=== PATIENT | female | born 1945 | race Caucasian/White ===

== ENCOUNTER 2020-07-18 15:50 | Emergency (ER) | payer OTHER | END 2020-07-18 16:09 | disposition home or self-care (01) | LOC: JVIRT 15:50 | DX: U07.1 COVID-19 (principal) | CPT/HCPCS: C9803; Q3014-GT; U0003 ==

== ENCOUNTER 2021-08-24 18:27 | Inpatient (IN) | payer OTHER ==
[2021-08-24] MEDS ORDERED: ACETAMINOPHEN 1000 MG/100 ML BAG IVPB ONE (19:41)
[2021-08-24 19:49] LABS: BASO % 0.2 % (0-2.0); EOS % 2.1 % (0-4.5); HEMATOCRIT 42.6 % (32.4-45.2); HEMOGLOBIN 14.2 GM/dL (10.7-15.3); LYMPH % 16.3 % (8-40); MCH 30.1 pg (25.7-33.7); MCHC 33.3 g/dl (32.0-36.0); MEAN CELL VOLUME 90.4 fl (80-96); MEAN PLT VOLUME 8.1 fl (7.5-11.1); MONO % 6.5 % (3.8-10.2); NEUT % 74.9 % (42.8-82.8); PLATELET COUNT 208 10^3/uL (134-434); RBC 4.71 M/mm3 (3.60-5.2); RDW 12.8 % (11.6-15.6); WHITE BLOOD COUNT 10.9 K/mm3 (4.0-10.0)
[2021-08-24] MEDS ORDERED: morphine CARPU-JECT 2 MG/1 ML DISP.SYRIN IVPUSH ONE (19:52)
[2021-08-24] MEDS ORDERED: LIDOCAINE 5% TOPICAL PATCH TP ONE (19:53)
[2021-08-24] MEDS ORDERED: ACETAMINOPHEN INJECTION 100 ML IVPB ONE (19:54)
[2021-08-24 20:19] LABS: CALCIUM 9.1 mg/dL (8.5-10.1)
[2021-08-24] MEDS ORDERED: LIDOCAINE 5% TOPICAL PATCH ONE (20:19)
[2021-08-24 20:20] LABS: ALBUMIN 3.8 g/dl (3.4-5.0); BLOOD UREA NITROGEN 19.2 mg/dL (7-18); MAGNESIUM 2.3 mg/dL (1.8-2.4)
[2021-08-24 20:21] LABS: INR 1.09 (0.83-1.09); PROTHROMBIN TIME (PATIENT) 12.2 SEC (9.7-13.0)
[2021-08-24 20:23] LABS: CREATININE 0.6 mg/dL (0.55-1.3)
[2021-08-24 20:24] LABS: ACTIVATED PTT 31.4 SECONDS (25.2-36.5); BILIRUBIN,TOTAL 0.4 mg/dL (0.2-1); TOT PROT 7.3 g/dl (6.4-8.2)
[2021-08-24] MEDS ORDERED: LIDOCAINE HCL 1%, 10 MG/ML (50 mL VIAL) PNB ONE (22:45)
[2021-08-24] MEDS ORDERED: LIDOCAINE HCL 1%, 10 MG/ML (20ML VIAL) ONE (23:05)
[2021-08-25 06:08] LABS: PH,URINE 6.5 (5.0-8.0); URINE APPEARANCE CLEAR; URINE BILIRUBIN NEGATIVE (NEGATIVE); URINE COLOR YELLOW; URINE GLUCOSE (UA) NEGATIVE (NEGATIVE); URINE KETONE TRACE (NEGATIVE); URINE LEUK ESTERASE NEGATIVE (NEGATIVE); URINE NITRITE NEGATIVE (NEGATIVE); URINE PROTEIN NEGATIVE (NEGATIVE); URINE UROBILINOGEN 0.2 mg/dL (0.2-1.0)
[2021-08-25 06:46] VITALS: BMI 31.2
[2021-08-25] MEDS ORDERED: LIDOCAINE PATCH REMOVAL MC ONE (08:00)
[2021-08-25 08:54] LABS: ALBUMIN 3.3 g/dl (3.4-5.0); BILIRUBIN,TOTAL 0.9 mg/dL (0.2-1); BLOOD UREA NITROGEN 19.6 mg/dL (7-18); CALCIUM 8.7 mg/dL (8.5-10.1); CREATININE 0.5 mg/dL (0.55-1.3); TOT PROT 6.6 g/dl (6.4-8.2)
[2021-08-25] MEDS: ACETAMINOPHEN 1000 MG/100 ML BAG IVPB PRN ×3 (09:32→22:07)
[2021-08-25] MEDS: DEXTROSE 5%-0.45% SALINE 1,000 ML IV SCH (09:39)
[2021-08-25 10:35] LABS: BASO % 0.4 % (0-2.0); EOS % 0.4 % (0-4.5); HEMOGLOBIN 13.6 GM/dL (10.7-15.3); LYMPH % 8.1 % (8-40); MCH 31.9 pg (25.7-33.7); MEAN CELL VOLUME 91.1 fl (80-96); MEAN PLT VOLUME 8.5 fl (7.5-11.1); MONO % 8.2 % (3.8-10.2); NEUT % 82.9 % (42.8-82.8); PLATELET COUNT 221 10^3/uL (134-434); RBC 4.28 M/mm3 (3.60-5.2); RDW 12.9 % (11.6-15.6); WHITE BLOOD COUNT 10.4 K/mm3 (4.0-10.0)
[2021-08-26] MEDS: DEXTROSE 5%-0.45% SALINE 1,000 ML IV SCH (00:57)
[2021-08-26] MEDS ORDERED: MIDAZOLAM HCL 2 MG/2 ML SINGLE DOSE VIAL ONE ×2 (08:16)
[2021-08-26] MEDS ORDERED: PROPOFOL 20 ML ONE (08:16)
[2021-08-26] MEDS ORDERED: ceFAZolin SODIUM 1 GM VIAL IVPB ONE (08:48)
[2021-08-26] MEDS ORDERED: ONDANSETRON 4 MG/2 ML VIAL ONE (09:39)
[2021-08-26] MEDS ORDERED: ceFAZolin SODIUM 1 GM VIAL ONE ×2 (09:39→17:54)
[2021-08-26] MEDS ORDERED: SODIUM CHLORIDE 0.9% P/F 10 ML VIAL IJ ONE (09:39)
[2021-08-26] MEDS ORDERED: DEXAMETHASONE SOD PHOSPHATE 4 MG/1 ML VIAL ONE (09:39)
[2021-08-26] MEDS ORDERED: KETOROLAC TROMETHAMINE 30 MG/1 ML VIAL ONE (09:39)
[2021-08-26] MEDS ORDERED: ACETAMINOPHEN 1000 MG/100 ML BAG IVPB ONE (09:55)
[2021-08-26] MEDS ORDERED: ONDANSETRON 4 MG/2 ML VIAL IVPUSH PRN (09:55)
[2021-08-26] MEDS ORDERED: LACTATED RINGERS SOLUTION 1,000 ML IV SCH ×2 (10:00)
[2021-08-26] MEDS ORDERED: CEFAZOLIN 1 GM/D5W 50 ML IVPB SCH (10:00)
[2021-08-26] MEDS ORDERED: ENOXAPARIN NA (PORCINE) 40 MG/0.4 ML DISP.SYRIN SQ SCH (10:00)
[2021-08-26] MEDS: LACTATED RINGERS SOLUTION 1,000 ML IV SCH (11:15)
[2021-08-26] MEDS ORDERED: PT OWN MED DRAWER 7, Y5N ONE ×2 (17:10→17:26)
[2021-08-26] MEDS ORDERED: DEXTROSE 5%-WATER - 50 ML IVPB ONE (17:54)
[2021-08-26] MEDS: WATER IVPB SCH (17:58)
[2021-08-26] MEDS: DEXTROSE 5% IVPB SCH (17:58)
[2021-08-26] MEDS: CEFAZOLIN IVPB SCH (17:58)
[2021-08-26] MEDS ORDERED: CEFAZOLIN 1 GM/D5W 1 GRAM/50 ML BAG IVPB SCH (18:00)
[2021-08-26] MEDS: ACETAMINOPHEN 1000 MG/100 ML BAG IVPB PRN (21:20)
[2021-08-27] MEDS ORDERED: DEXTROSE 5%-WATER - 50 ML IVPB ONE (01:13)
[2021-08-27] MEDS ORDERED: ceFAZolin SODIUM 1 GM VIAL ONE (01:13)
[2021-08-27] MEDS: WATER IVPB SCH (01:17)
[2021-08-27] MEDS: CEFAZOLIN IVPB SCH (01:17)
[2021-08-27] MEDS: DEXTROSE 5% IVPB SCH (01:17)
[2021-08-27 11:03] LABS: BLOOD UREA NITROGEN 22.3 mg/dL (7-18); CALCIUM 8.8 mg/dL (8.5-10.1)
[2021-08-27 11:07] LABS: CREATININE 0.7 mg/dL (0.55-1.3)
[2021-08-27] MEDS: ENOXAPARIN NA (PORCINE) 40 MG/0.4 ML DISP.SYRIN SQ SCH (11:17)
[2021-08-27] MEDS: ACETAMINOPHEN 1000 MG/100 ML BAG IVPB PRN ×2 (11:24→22:17)
[2021-08-27 11:46] LABS: HEMATOCRIT 32.9 % (32.4-45.2); HEMOGLOBIN 11.1 GM/dL (10.7-15.3); MCH 30.8 pg (25.7-33.7); MCHC 33.8 g/dl (32.0-36.0); MEAN CELL VOLUME 91.2 fl (80-96); MEAN PLT VOLUME 8.2 fl (7.5-11.1); PLATELET COUNT 223 10^3/uL (134-434); RDW 12.9 % (11.6-15.6); WHITE BLOOD COUNT 16.4 K/mm3 (4.0-10.0)
[2021-08-27] MEDS: LACTATED RINGERS SOLUTION 1,000 ML IV SCH (16:30)
[2021-08-28] MEDS: ACETAMINOPHEN 1000 MG/100 ML BAG IVPB PRN ×2 (09:27→21:50)
[2021-08-28] MEDS: ENOXAPARIN NA (PORCINE) 40 MG/0.4 ML DISP.SYRIN SQ SCH (09:27)
[2021-08-28 10:09] LABS: BLOOD UREA NITROGEN 23.2 mg/dL (7-18); CALCIUM 8.6 mg/dL (8.5-10.1)
[2021-08-28 10:13] LABS: CREATININE 0.5 mg/dL (0.55-1.3)
[2021-08-28 10:19] LABS: HEMATOCRIT 30.4 % (32.4-45.2); HEMOGLOBIN 10.1 GM/dL (10.7-15.3); MCH 30.9 pg (25.7-33.7); MEAN CELL VOLUME 93.5 fl (80-96); MEAN PLT VOLUME 8.6 fl (7.5-11.1); PLATELET COUNT 206 10^3/uL (134-434); RBC 3.25 M/mm3 (3.60-5.2); RDW 13.1 % (11.6-15.6); WHITE BLOOD COUNT 11.6 K/mm3 (4.0-10.0)
[2021-08-28] MEDS: LACTATED RINGERS SOLUTION 1,000 ML IV SCH (12:16)
[2021-08-29 08:55] LABS: HEMOGLOBIN 9.9 GM/dL (10.7-15.3); MCH 31.3 pg (25.7-33.7); MEAN CELL VOLUME 92.1 fl (80-96); MEAN PLT VOLUME 7.8 fl (7.5-11.1); PLATELET COUNT 216 10^3/uL (134-434); RBC 3.15 M/mm3 (3.60-5.2); RDW 12.9 % (11.6-15.6)
[2021-08-29] MEDS: ENOXAPARIN NA (PORCINE) 40 MG/0.4 ML DISP.SYRIN SQ SCH (10:55)
[2021-08-29] MEDS: ACETAMINOPHEN 1000 MG/100 ML BAG IVPB PRN (12:46)
[2021-08-29] MEDS: LACTATED RINGERS SOLUTION 1,000 ML IV SCH (12:47)
[2021-08-30 08:15] VITALS: BP 131/66; PULSE 86; TEMP 98.9
[2021-08-30] MEDS: ENOXAPARIN NA (PORCINE) 40 MG/0.4 ML DISP.SYRIN SQ SCH (10:51)
[2021-08-30] MEDS: ACETAMINOPHEN 1000 MG/100 ML BAG IVPB PRN (10:51)
[2021-08-30] MEDS: LACTATED RINGERS SOLUTION 1,000 ML IV SCH (10:52)
== END 2021-08-30 20:35 | DRG 482 ==
LOC: JER 18:27 → JERBED 22:18 → J6S 08-25 06:20
PROVIDERS: ADMIT Internal Medicine; ATTEND Internal Medicine
PROC: 0QS606Z Reposition Right Upper Femur with Intramedullary Internal Fixation Device, Open Approach (ICD-10-PCS; principal; 2021-08-26 08:00)
DX: S72.141A Displaced intertrochanteric fracture of right femur, initial encounter for closed fracture (principal); I73.9 Peripheral vascular disease, unspecified; I10 Essential (primary) hypertension; F32.A Depression, unspecified; E78.5 Hyperlipidemia, unspecified; S00.03XA Contusion of scalp, initial encounter; W19.XXXA Unspecified fall, initial encounter; Y93.9 Activity, unspecified; Y92.89 Other specified places as the place of occurrence of the external cause; Y99.9 Unspecified external cause status; E66.9 Obesity, unspecified; Z68.31 Body mass index [BMI] 31.0-31.9, adult
CPT/HCPCS: 36415; 70450-TC; 71045-TC-FY; 72125-TC; 73502-TC-LT-FY; 73523-TC-FY; 76000-TC-FY; 80048; 80053; 81003; 82550; 83735; 84443; 84484; 85025; 85027; 85610; 85730; 86850; 86900; 86901; 87086; 93005; 93010; 94760; 97116-GP; 97162-GP; 99285-25; C9803; J0131; U0003; U0005

== ENCOUNTER 2022-01-29 06:25 | Day surgery (SDC) | payer OTHER ==
[2022-01-17 12:16] VITALS: BMI 30.9
[2022-01-29] MEDS ORDERED: PHENYLEPHRINE 2.5% OPHTH SOLN 15 ML BOTTLE ONE (06:44)
[2022-01-29] MEDS ORDERED: CYCLOPENTOLATE HCL 1% OPHTH SOLN 2 ML BOTTLE ONE (06:44)
[2022-01-29] MEDS ORDERED: TROPICAMIDE 1% OPHTH SOLN 15 ML BOTTLE ONE (06:44)
[2022-01-29] MEDS ORDERED: KETOROLAC TROMETHAMINE 0.5% EYE DROP 1 DROP DROPS ONE (06:44)
[2022-01-29] MEDS ORDERED: OFLOXACIN 0.3% OPHTHALMIC SOLUTION 5 ML BOTTLE ONE (06:44)
[2022-01-29] MEDS: PHENYLEPHRINE 2.5% OPHTH SOLN 15 ML BOTTLE OD SCH ×3 (07:00→07:10)
[2022-01-29] MEDS: OFLOXACIN 0.3% OPHTHALMIC SOLUTION 5 ML BOTTLE OD SCH ×2 (07:00→07:10)
[2022-01-29] MEDS: CYCLOPENTOLATE HCL 1% OPHTH SOLN 2 ML BOTTLE OD SCH ×3 (07:00→07:10)
[2022-01-29] MEDS: TROPICAMIDE 1% OPHTH SOLN 15 ML BOTTLE OD SCH ×3 (07:00→07:10)
[2022-01-29] MEDS: KETOROLAC TROMETHAMINE 0.5% EYE DROP 1 DROP DROPS OD SCH ×3 (07:00→07:10)
[2022-01-29] MEDS ORDERED: BETAXOLOL HCL 0.25% OPHTHALMIC 10 ML DROPSBTL ONE (07:23)
[2022-01-29] MEDS ORDERED: BACITRACIN/POLYMYXIN OPH OINT 3.5 GM TUBE ONE (07:23)
[2022-01-29] MEDS ORDERED: TETRACAINE 0.5% OPHTH SOLN 2 ML BOTTLE ONE (07:23)
[2022-01-29] MEDS ORDERED: MIDAZOLAM HCL 2 MG/2 ML SINGLE DOSE VIAL ONE (07:23)
[2022-01-29] MEDS ORDERED: POVIDONE-IODINE 5% OPHTHALMIC PREP 30 ML SOLUTION ONE (07:23)
[2022-01-29] MEDS ORDERED: EPINEPHrine/PF 1 MG/1 ML (1:1,000) AMPULE ONE (07:23)
[2022-01-29] MEDS ORDERED: EPI-SHUGARCAINE (EPINEPHRINE 0.025% & LIDOCAINE-PF 0.75%) 4ML ONE (07:23)
[2022-01-29] MEDS ORDERED: NEO/POLYMYX B SULF/DEXAMETH OPHTHALMIC 5ML BOTTLE ONE (07:24)
[2022-01-29] MEDS ORDERED: ACETAMINOPHEN 325 MG TABLET (FP) PO PRN (08:59)
[2022-01-29 09:15] VITALS: TEMP 97.7
[2022-01-29 09:37] VITALS: BP 141/70; PULSE 74
== END 2022-01-29 09:35 | disposition home or self-care (01) ==
LOC: FASU 06:25
PROVIDERS: ATTEND Ophthalmology
PROC: 08RJ3JZ Replacement of Right Lens with Synthetic Substitute, Percutaneous Approach (ICD-10-PCS; principal; 2022-01-29 08:32)
DX: H25.89 Other age-related cataract (principal)
CPT/HCPCS: 66984; V2632

== ENCOUNTER 2022-02-12 06:24 | Day surgery (SDC) | payer OTHER ==
[2022-01-17 12:24] VITALS: BMI 30.9
[2022-02-12] MEDS ORDERED: KETOROLAC TROMETHAMINE 0.5% EYE DROP 1 DROP DROPS ONE (07:02)
[2022-02-12] MEDS ORDERED: TROPICAMIDE 1% OPHTH SOLN 15 ML BOTTLE ONE (07:02)
[2022-02-12] MEDS ORDERED: PHENYLEPHRINE 2.5% OPHTH SOLN 15 ML BOTTLE ONE (07:02)
[2022-02-12] MEDS ORDERED: OFLOXACIN 0.3% OPHTHALMIC SOLUTION 5 ML BOTTLE ONE (07:02)
[2022-02-12] MEDS ORDERED: CYCLOPENTOLATE HCL 1% OPHTH SOLN 2 ML BOTTLE ONE (07:02)
[2022-02-12] MEDS: CYCLOPENTOLATE HCL 1% OPHTH SOLN 2 ML BOTTLE OS SCH ×3 (07:05→07:15)
[2022-02-12] MEDS: KETOROLAC TROMETHAMINE 0.5% EYE DROP 1 DROP DROPS OS SCH ×3 (07:05→07:15)
[2022-02-12] MEDS: TROPICAMIDE 1% OPHTH SOLN 15 ML BOTTLE OS SCH ×3 (07:05→07:15)
[2022-02-12] MEDS: OFLOXACIN 0.3% OPHTHALMIC SOLUTION 5 ML BOTTLE OS SCH ×3 (07:05→07:15)
[2022-02-12] MEDS: PHENYLEPHRINE 2.5% OPHTH SOLN 15 ML BOTTLE OS SCH ×3 (07:05→07:15)
[2022-02-12] MEDS ORDERED: EPINEPHrine/PF 1 MG/1 ML (1:1,000) AMPULE ONE (07:25)
[2022-02-12] MEDS ORDERED: BACITRACIN/POLYMYXIN OPH OINT 3.5 GM TUBE ONE (07:25)
[2022-02-12] MEDS ORDERED: POVIDONE-IODINE 5% OPHTHALMIC PREP 30 ML SOLUTION ONE (07:26)
[2022-02-12] MEDS ORDERED: PHENYLEPHRINE/KETOROLAC 4 ML VIAL IO ONE (07:26)
[2022-02-12] MEDS ORDERED: EPI-SHUGARCAINE (EPINEPHRINE 0.025% & LIDOCAINE-PF 0.75%) 4ML ONE (07:26)
[2022-02-12] MEDS ORDERED: BETAXOLOL HCL 0.25% OPHTHALMIC 10 ML DROPSBTL ONE (07:26)
[2022-02-12] MEDS ORDERED: ACETYLCHOLINE 1:100 INTRA-OCUL 20 MG/2 ML KIT ONE (07:26)
[2022-02-12] MEDS ORDERED: TETRACAINE 0.5% OPHTH SOLN 2 ML BOTTLE ONE (07:26)
[2022-02-12] MEDS ORDERED: TRYPAN BLUE 0.5 ML DISP.SYRIN ONE (07:26)
[2022-02-12] MEDS ORDERED: NEO/POLYMYX B SULF/DEXAMETH OPHTHALMIC 5ML BOTTLE ONE (07:26)
[2022-02-12] MEDS ORDERED: BSS (NA/CA/MG/K) BALANCED SALT SOLUTION OPHTH SOLN 15 ML BOTTLE ONE (07:26)
[2022-02-12] MEDS ORDERED: MIDAZOLAM HCL 2 MG/2 ML SINGLE DOSE VIAL ONE (08:11)
[2022-02-12] MEDS ORDERED: ACETAMINOPHEN 325 MG TABLET (FP) PO PRN (08:54)
[2022-02-12 09:07] VITALS: TEMP 97.9
[2022-02-12 09:42] VITALS: BP 131/71; PULSE 75
== END 2022-02-12 09:35 | disposition home or self-care (01) ==
LOC: FASU 06:24
PROVIDERS: ATTEND Ophthalmology
PROC: 08RK3JZ Replacement of Left Lens with Synthetic Substitute, Percutaneous Approach (ICD-10-PCS; principal; 2022-02-12 08:29)
DX: H25.9 Unspecified age-related cataract (principal)
CPT/HCPCS: 66984; V2632; J1097

== ENCOUNTER 2023-01-23 04:35 | Day surgery (SDC) | payer OTHER ==
[2023-01-22 10:56] VITALS: BMI 30.9
[2023-01-23 08:52] VITALS: TEMP 98.2
[2023-01-23 11:06] VITALS: PULSE 68
[2023-01-23 11:07] VITALS: BP 135/53; RESP 12
== END 2023-01-23 11:10 | disposition home or self-care (01) ==
LOC: JASU-ENDO 04:35
PROVIDERS: ATTEND Internal Medicine Gastroenterology
PROC: 0DBK8ZX Excision of Ascending Colon, Via Natural or Artificial Opening Endoscopic, Diagnostic (ICD-10-PCS; principal; 2023-01-23 09:30)
DX: Z12.11 Encounter for screening for malignant neoplasm of colon (principal); D12.2 Benign neoplasm of ascending colon; K64.8 Other hemorrhoids
CPT/HCPCS: 88305-TC